=== PATIENT | male | born 1990 | race Caucasian/White ===

== ENCOUNTER 2017-12-10 18:27 | Inpatient (IN) | payer OTHER ==
[~2017-12-10] VITALS: Ht 180.3 cm; Wt 65.8 kg
[~2017-12-10 18:27] MED LIST: Gabapentin PO; MAGN1TAB4 PO
--- NOTE | 2017-12-10 18:40 | NUR ---
Pre-Admission Note Pt. is 27 y/o male seeking admittance for opiate and benzodiazepine withdrawal. Pt. presents as anxious, restless, with pressured speech and dilated pupils. Pt. states he uses methadone 70mg-80mg daily but has been unable to obtain any since last 12/04/2017. Pt. states that he also Uses 10mg of Xanax daily last used on Friday12/08/2017. Pt. reports using heroin over the weekend to help manage his withdrawal symptoms but states that he no longer uses heroin at all. Pt.'s current vital signs WNL. Educated pt. on admission process, pt. verbalize understanding.
[2017-12-10 19:03] VITALS: BP 108/68
[2017-12-10 19:39] VITALS: BP 101/62
--- NOTE | 2017-12-10 20:00 | NUR ---
Admission The patient is a 27 year old male who presents to [facility] for medically supervised withdrawal from Opiate-Methadone and Benzos- Xanax. Patient was escorted on to the unit at 1900. Skin check rendered with skin noted intact. Patient is ambulatory with steady gait. Patient is noted to be very irritable, anxious, and restless. He is noted with flat, depressed affect. Patient is noted to answer questions with quick one word answers and is often noted with delayed answers. He states Im really sick. I dont feel good. I need medications now. Why do we have to do this now. Explained admission process to patient and he verbalized understanding and was noted to comply. Patient is also noted to answer questions with eyes closed. He is alert and oriented x4, speech is clear, pressured and at times delayed. Patient reports his substance use as: 1. Opiates-Methadone: started 3 months ago, he first started at 40mg and quickly graduated to 80mg Daily PO. His last dose was 12/04/17 1000 taking 80mg. 2. Benzos-Xanax: started approximately 3 months ago taking 10mg PO daily. His last dose was noted 12/08/17 1000 taking 6mg. Patient was first prescribed Xanax at the age of [age] years old. Patients bottle of Xanax was found in his luggage and prescription was filled 11/28/17. He was given 60 tabs and bottle was noted to be empty. Clarified with patient of usage and he states I told you the last time I took a benzo was on Friday (12/08/17). Benzos stay in your system for 2 weeks. Im the professional here. I know what Im talking about. 3. Opiate-Heroin: patient reports of only using heroin 0.2mg x2 days 12/06/17 and 12/07/17 because he was not able to receive another dose of methadone. Patient first started using Heroin approx 10 years ago at the age of 17. 4. Subutex 8mg taken at 7am on the day of admission due to increased signs and symptoms of withdrawal. Patient explains of previously taking Subutex or Suboxone whatever he was able to purchase on the street. When asked if patient is experiencing any signs and symptoms fo withdrawal patient states Yes. Im sick. My body hurts, stomach cramps, fatigue, no appetite, nausea, headaches, chills, sweats, tremors patient is noted with symptoms as described, tremulous, chills, sweats, restless, agitated, anxious, and light sensitivity. Patient denies any seizure history. He also denies any withdrawal induced cardiac complications, or overdoses. When asked if patient has experienced withdrawal induced delirium patient states well this last weekend when I took the heroin I kept hearing my name. He denies any previous visual hallucinations but he explains of experiencing auditory hallucinations. He also explains of experiencing blackouts when using too much Benzos or Opiates. He is unable to recall the last time he experienced a blackout. Patient denies any suicidal ideations or homicidal ideations. He also denies any history of Psych Hospitalizations. He reports no current PCP or Psychiatrist. Patient reports of only being prescribed Xanax 2mg PO PRN for Anxiety. He explains I got these at a clinic when I was in [place]. Patient reports a past medical history of anxiety, depression with no current medication prescribed, and Hep C, which was diagnosed Nov 2015. When asked why patient uses or what resulted in his relapse, He states I have always used. This isnt a relapse. I just maintained this time by using methadone. Where I was I could get Methadone prescribed to me in weekly or monthly doses. When I came out to [place] for work, I was unable to find a location where I get that. So I found what I could which was Heroin. I also just maintained using Xanax until I ran out. I thought I would be ok but I wasnt. I was able to get a hold of Subutex. And that is what I took today and yesterday to no feel so bad. But that wasnt working either. When asked why patient decided to get sober he states I need help. I feel like shit. When asked to explain his triggers patient states I like the high. I crave it. I was using Methadone by itself but then it wasnt giving me the high so I was take benzos just to get the high I was seeking. When asked to explain barriers for staying sober he states I guess you can say myself. I feel like the cravings are so intense that I want to use. Patient is able to state his support system consists of his sober friends and his mom. He is able to explain his consequences from using as feeling like crap when I cant get the drug Im looking for and maybe damaging my relationships, and affecting my health. Patient explains of trying to reach sobriety on several occasions but due to the symptoms of withdrawal becoming overwhelming he resorts to using again. Patient is unable to explain how this admission will be different and he states what I do know is that this detox is different than any of the other times I have detoxed. The methadone is really bad. Patient has struggled with multiple attempts at sobriety with the longest being for 10 months in 2012. Patient reports of multiple treatment admissions including several admissions to [facility] with the last one noted Apr 2016. Vital sings rendered and noted as 97.6, 101/62, 16, 48, 99% 0/10 pain. Heart rate is noted to be 48 with CN made aware. MD made aware. Breathing even and non labored. Patient is noted with wheezing to the right upper lobe. No cough noted. Bowel sounds active in all quadrants. LBM noted 12/10/17. Patient follows a regular diet. No known allergies, Full Code. Height noted to be 511 and weight noted to be 145lbs. Patient reports of smoking approximately 20 cigarettes a day. Educated patient about plan of care including detox, group therapy, individual therapy, discharge planning, and he was able to verbalize understanding. Admission CIWA noted to be 22 and COWS 11. All information relayed to MD with new orders for EKG to be rendered, PRN medications for increased signs and symptoms of withdrawal. Labs ordered. All needs attended to promptly. Will continue plan of care as ordered.
[2017-12-10] MEDS ORDERED: MAGNESIUM HYDROXIDE 30 ML LIQUID UDC PO PRN (20:45)
[2017-12-10] MEDS ORDERED: 6 DAY PHENOBARBITAL TAPER -SERENITY PROTOCOL PO PRN (20:45)
[2017-12-10] MEDS ORDERED: ONDANSETRON ODT 4 MG TAB.RAPDIS SL PRN (20:45)
[2017-12-10] MEDS ORDERED: LOPERAMIDE HCL 2 MG CAPSULE PO PRN ×2 (20:45)
[2017-12-10] MEDS ORDERED: MAG HYDROX/AL HYDROX/SIMETH 30 ML LIQUID UDC PO PRN (20:45)
[2017-12-10] MEDS ORDERED: BUPRENORPHINE HCL 2 MG TAB.SUBL SL PRN (20:45)
[2017-12-10] MEDS ORDERED: ONDANSETRON 4 MG/2 ML VIAL IM PRN (20:45)
[2017-12-10 21:25] LABS: *AMPHETAMINE, URINE NEGATIVE (NEGATIVE); *BARBITURATE, URINE NEGATIVE (NEGATIVE); *CANNABINOID, URINE POSITIVE (NEGATIVE); *COCCAINE, URINE NEGATIVE (NEGATIVE); *OPIATE, URINE POSITIVE (NEGATIVE); *PHENCYCLIDINE SCREEN,URINE NEGATIVE (NEGATIVE)
[2017-12-10 21:39] LABS: BASOPHILS % (AUTO) 0.2 % (0.0-2.0); EOSINOPHILS # (AUTO) 0.1 K/uL (0.0-0.7); EOSINOPHILS % (AUTO) 1.2 % (0.0-7.0); HEMATOCRIT 42.2 % (36.7-47.1); HEMOGLOBIN 14.7 g/dL (12.5-16.3); LYMPHOCYTES % (AUTO) 27.4 % (20.5-51.5); MEAN CORPUSCULAR HEMOGLOBIN 31.9 uug (23.8-33.4); MEAN CORPUSCULAR HGB CONC 35 g/dL (32.5-36.3); MEAN CORPUSCULAR VOLUME 91.5 fL (73.0-96.2); MONOCYTES # (AUTO) 0.9 K/uL (2.0-10.0); MONOCYTES % (AUTO) 8.7 % (0.0-11.0); NEUTROPHILS # (AUTO) 6.8 K/uL (1.8-8.9); NEUTROPHILS % (AUTO) 62.5 % (38.5-71.5); PLATELET COUNT (AUTO) 212 K/uL (152-348); RED BLOOD CELL COUNT(AUTO) 4.62 MIL/uL (4.06-5.63); WHITE BLOOD COUNT (AUTO) 10.8 K/uL (3.6-10.2)
[2017-12-10 21:41] LABS: ETHANOL < 3 MG/DL (0-0)
[2017-12-10 21:59] LABS: ALANINE AMINOTRANSFERASE 56 U/L (16-63); ALKALINE PHOSPHATASE 58 U/L (50-136); ASPARTATE AMINOTRANSFERASE 23 U/L (15-37); BILIRUBIN,TOTAL 0.3 mg/dL (0.2-1.0); CARBON DIOXIDE 26 mmol/L (21-32); CHLORIDE 104 mmol/L (98-107); CREATININE 0.7 mg/dL (0.6-1.3); GLUCOSE 110 mg/dL (74-106); MAGNESIUM 2.1 mg/dL (1.8-2.4); POTASSIUM 3.3 mmol/L (3.5-5.1); TOTAL PROTEIN, SERUM 6.9 g/dL (6.4-8.2); UREA NITROGEN, BLOOD 8 mg/dL (7-18)
[2017-12-10 22:28] LABS: THYROID STIMULATING HORMONE 0.206 mIU/mL (0.358-3.740)
[2017-12-10 22:29] VITALS: BP 113/79
[2017-12-10] MEDS ORDERED: POTASSIUM CHLORIDE 20 MEQ TAB.PRT.SR PO ONE (22:30)
--- NOTE | 2017-12-10 22:30 | NUR ---
EKG EKG rendered and noted as Sinus bradycardia with sinus arrythmia. Relayed to MD orders for Echo and cardiology consult for AM. Ok to administer Ativan as ordered. Will continue to monitor. Addendum: 12/11/17 at 0457 by ANGÉLICA WAITE LVN Correction: Arrhythmia
[2017-12-10] MEDS: LORAZEPAM 1 MG TABLET PO PRN (22:46)
[2017-12-10] MEDS ORDERED: ALPR2TAB7 PO (22:48)
--- NOTE | 2017-12-10 22:50 | NUR ---
PRN Medication Administration Patient is noted with increased anxiety, agitation, tremulous, sweats, chills, light sensitivity, headache, and intermittent stomach cramps. MD made aware of patients heart rate with ok to administer PRN Ativan 2mg. Patients lab values with potassium as 3.3 with new order for one time dose of Potassium 40meq one time dose now. Medications administered. Patient able to tolerate well. Will continue to monitor.
--- NOTE | 2017-12-10 23:40 | NUR ---
PRN Medication Reassessment Patient received PRN Ativan 2mg for increased signs and symptoms of withdrawal. No restlessness or facial grimacing noted. CIWA and COWS not able to be completed as per order. PRN Ativan noted to be effective. Will continue to monitor.
[2017-12-11] VITALS (7 sets, daily range): BP systolic 95–133; BP diastolic 55–86
--- NOTE | 2017-12-11 00:27 | NUR ---
COWS and CIWA Patient is noted in bed with eyes closed. Breathing even and non labored. No facial grimacing noted. No restlessness noted. Vitals rendered. Heart rate remains low at 45. CN made aware. COWS and CIWA unable to be completed as per order. Will continue to monitor.
[2017-12-11] MEDS: LORAZEPAM 1 MG TABLET PO PRN ×2 (03:58→14:33)
--- NOTE | 2017-12-11 04:05 | NUR ---
PRN Medication Administration patient is noted awake and returned from smoking patio with increased tremors, anxiety, agitation, stomach cramps, light sensitivity, and head fullness. CIWA noted to be 21 and COWS 14. PRN Subutex offered to patient but patient refuesd. PRN Ativan 2mg administered. Heart rate noted to be 61. All needs attended to promptly. Will continue to monitor.
--- NOTE | 2017-12-11 04:50 | NUR ---
PRN Mediation Reassessment Patient is noted in bed with eyes closed. Breathing even and non labored. No sign of restlessness or discomfort noted. No facial grimacing noted. PRN Ativan 2mg noted to be effective. Will continue to monitor.
--- NOTE | 2017-12-11 07:04 | NUR ---
End of shift Patient is in bed with eyes closed. Breathing even and non labored. No signs of restlessness or discomfort. Patient is scheduled to start a 6 day Phenobarbital taper and 5 day Subutex taper. Patient received PRN Ativan 2mg x2 for increased signs and symptoms of withdrawal. Patient noted to sleep a total of 6 hours. Last noted CIWA 21 and COWS 14. All needs attended to promptly. Will endorse to continue plan of care as ordered.
--- NOTE | 2017-12-11 07:15 | NUR ---
Start of Shift note Pt. is a 27 y/o male admitted for medically managed withdrawal from Benzodiazepines and opiates. Pt. was placed on a 6 day Phenobarbital and a 5 day Subutex taper to manage withdrawal symptoms. Endorse from previous shift pt. presented with body aches, anxiety, restlessness and tremors. Pt. given PRN ativan to manage withdrawal symptoms. Received pt. in room. Pt. getting ready to out for a smoke. Pt. reports feeling off stating Patience never come off methadone before, I feel bad, I cant describe it I just feel bad. Pt. educated on treatment plan and medication regiment. Pt. encouraged to verbalize concerns and emotions. Safety measures in place. Will continue to monitor pt.s behavior for safety and medication effectiveness.
--- NOTE | 2017-12-11 08:00 | NUR ---
COWS/CIWA Assessment COWS of 15. CIWA of 17. Pt. in room presenting with diaphoresis, agitation, restlessness, body aches, congestion, stomach cramps, anxiety, tremors, mild light sensitivity, piloerection. Will given medications as ordered. Will continue to monitor pt.'s behavior for safety.
[2017-12-11] MEDS: METHOCARBAMOL 750 MG TABLET PO PRN (08:10)
[2017-12-11] MEDS: HYDROXYZINE PAMOATE 25 MG CAPSULE PO PRN (08:10)
[2017-12-11] MEDS: CLONIDINE HCL 0.1 MG TABLET PO PRN (08:10)
[2017-12-11] MEDS: PHENOBARBITAL 60 MG TABLET PO SCH ×4 (08:10→20:22)
[2017-12-11] MEDS: BUPRENORPHINE HCL 2 MG TAB.SUBL SL SCH ×4 (08:11→20:22)
[2017-12-11] MEDS: DICYCLOMINE HCL 20 MG TABLET PO PRN (08:11)
[2017-12-11] MEDS: MULTIVITAMINS,THERAPEUTIC TABLET PO SCH (08:11)
[2017-12-11] MEDS: IBUPROFEN 600 MG TABLET PO PRN (08:11)
--- NOTE | 2017-12-11 08:11 | NUR ---
PRN Medication Pt. in room laying in bed and reports feeling anxious, chills, stomach cramps and body aches. PRN Clonidine, Vistaril, Robaxin, and Motrin given at this time to manage withdrawal symptoms. Will continue to monitor pt. behavior for safety and medication effectiveness.
[2017-12-11] MEDS ORDERED: 5 DAY TAPER BUPRENORPHINE -SERENITY PROTOCOL SL PRN (09:00)
[2017-12-11] MEDS ORDERED: TUBERCULIN,PURIF.PROT.DERIV. 5 TU/0.1 ML TEST ID ONE (09:00)
--- NOTE | 2017-12-11 09:00 | NUR ---
PRN Re-Assessment Pt. in bed and reports a decrease in anxiety and body aches. Medication effective. Will continue to monitor pt.'s behavior for safety.
--- NOTE | 2017-12-11 12:00 | NUR ---
COWS/CIWA Assessment COWS of 16. CIWA of 16. Pt. in room presenting with diaphoresis, agitation, restlessness, body aches, congestion, stomach cramps, anxiety, tremors, mild light sensitivity, piloerection. Pt. compliant with medication regiment and is able to make his needs known. Will continue to monitor pt.'s behavior for safety
--- NOTE | 2017-12-11 12:35 | NUR ---
ENDORSEMENT Pt endorsed to me. All information received.
--- NOTE | 2017-12-11 12:40 | NUR ---
LABS MD aware of lab results: WBC=10.8 tsh=0.206.
--- NOTE | 2017-12-11 14:37 | NUR ---
PRN ATIVAN SUBUTEX ciwa=13 cows=14. Anxious and restless. Very fidgety. Very irritable. Piloerection. Complaints of intermittent chills and sweats, body aches, adn generalized discomfort. Ativan 2mg po prn per MD order given and subutex 4mg po prn per MD order given.
--- NOTE | 2017-12-11 15:37 | NUR ---
PRN ATIVAN SUBUTEX TAPER cows=9 ciwa=8. Still anxious. Decreased irritability. Pt states medication is effective. Bilateral hand tremors noted.
--- NOTE | 2017-12-11 15:50 | NUR ---
Therapist prompted client to attend group therapy sessions.
--- NOTE | 2017-12-11 16:00 | NUR ---
COWS CIWA ASSESSMENT cows=11 ciwa=10. Anxious and restless. Pressured speech. Fidgety. Easily irritable. Pacing. Complaints of generalized discomfort, body aches, and intermittent chills and perspiration. Bilateral hand tremors.
--- NOTE | 2017-12-11 18:10 | NUR ---
END OF SHIFT Pt 27 y/o male admitted for opiate and benzo withdrawal. Pt alert and oriented to name, place, and time. Perrla. Skin warm and moist to touch. Respirations even and unlabored. Appears disheveled and unkempt. Clothes and empty drink bottles scattered throughout the room. Encouraged to maintain hygiene. Anxious and restless. Pressured speech. Fidgety. Irritable. Bilateral hand tremors. Complaints of intermittent perspiration. Mostly isolative with minimal peer interaction. Attended group activity. Was seen by MD. Last cows=11 ciwa= 10@1600. Pt is on a 6 day Phenobarbital taper and is on day 1. Pt also on a 5 day subutex taper and is on day 1. Bed on lowest position with side rails x2 up . Call light within reach.
--- NOTE | 2017-12-11 19:30 | NUR ---
Start of Shift Patient Received. Patient continues on scheduled Phenobarbital and Subutex taper. Echo and cardiology consult with no new orders noted. Patient was given PRN Vistaril, Clonidine, Robaxin, Motrin, Subutex, and Ativan with all medications noted to be effective. Last noted CIWA 10 and COWS 11. Upon rounds patient is noted in bed awake, alert and verbally responsive. Breathing even and non labored. Patient is able to verbalize that taper medication as been noted effective in minimizing signs and symptoms of withdrawal. All needs attended to promptly. Will continue plan of care as ordered.
[2017-12-11] MEDS: diphenhydrAMINE 50 MG CAPSULE PO PRN (20:22)
--- NOTE | 2017-12-11 20:28 | NUR ---
PRN Medication Administration Patient is noted verbalizing inability of falling asleep and staying asleep at night. PRN Benadryl administered. Will continue to monitor.
--- NOTE | 2017-12-11 21:30 | NUR ---
PRN Medication Reassessment Patient is noted in bed with his eyes closed. Breathing even and non labored. No signs of restlessness or discomfort noted. No facial grimacing noted. PRN Benadryl noted to be effective. Will continue to monitor.
--- NOTE | 2017-12-12 00:20 | NUR ---
COWS and CIWA Patient is noted in bed with eyes closed. Breathing even and non labored. No restlessness or discomfort noted. no signs of restlessness or facial grimacing noted. Patient refused vitals. COWS and CIWA not able to be completed. Will continue to monitor.
--- NOTE | 2017-12-12 04:20 | NUR ---
Cows and CIWA Patient is noted in bed with eyes closed. breathing even and non labored. No signs of restlessness or discomfort. COWS and CIWA not able to be completed as per order. Vitals refused. Will continue to monitor.
--- NOTE | 2017-12-12 07:03 | NUR ---
end of Shift Patient is in bed with eyes closed. Breathing even and non labored. Patient continues on scheduled Phenobarbital and Subutex taper. Patient received PRN Benadryl with medication noted to be effective. He was noted to sleep a total of 8 hours. Last noted CIWA 8 and COWS 11. Patient is noted to be isolative to room and only participating in smoke breaks. All needs attended to promptly. Will endorse to continue plan of care as ordered.
--- NOTE | 2017-12-12 07:30 | NUR ---
START OF SHIFT Pt 27 y/o male admitted for opiate and benzo withdrawal. Pt received awake walking around the hallways. Pt alert and oriented to name, place, and time. Perrla. Skin warm and moist to touch. Respirations even and unlabored. Appears disheveled. Clothes scattered throughout the room. Encouraged to maintain hygiene. Anxious and restless. Pacing. Pressured speech. Bilateral hand tremors. It was reported that pt slept for 8 hours last night. Last cows=11 ciwa=8 @ 1999. Pt is on a 6 day phenobarbital taper and is on day 2. Pt also on a 5 day subutex taper and is on day 2. Bed on lowest position with side rails x2 up for safety. Call light within reach.
--- NOTE | 2017-12-12 08:00 | NUR ---
COWS CIWA ASSESSMENT cows=11 ciwa=10. Anxious and restless. Pressured speech. Pacing. Not able to sit still. Easily irritable. Complaints of generalized discomfort. Bilateral hand tremors.
[2017-12-12 08:06] VITALS: BP 115/58
[2017-12-12] MEDS: ACETAMINOPHEN 325 MG TABLET PO PRN (08:08)
[2017-12-12] MEDS: PHENOBARBITAL 60 MG TABLET PO SCH ×3 (08:08→20:40)
[2017-12-12] MEDS: MULTIVITAMINS,THERAPEUTIC TABLET PO SCH (08:08)
[2017-12-12] MEDS: BUPRENORPHINE HCL 2 MG TAB.SUBL SL SCH ×3 (08:08→20:40)
--- NOTE | 2017-12-12 08:10 | NUR ---
PRN TYLENOL Pt states has generalized pain 5/10. Tylenol prn po per MD order given.
--- NOTE | 2017-12-12 09:10 | NUR ---
PRN TYLENOL EVAL States pain is 3/10.
[2017-12-12 12:00] VITALS: BP 118/60
--- NOTE | 2017-12-12 12:00 | NUR ---
COWS CIWA ASSESSMENT cows=11 ciwa=10. Bilateral hand tremors noted. Anxious and restless. Pressured speech. Fidgety. Complaints of stomach cramps. Complaints of generalized body aches and generalized discomfort.
[2017-12-12] MEDS: HYDROXYZINE PAMOATE 25 MG CAPSULE PO PRN (12:16)
[2017-12-12] MEDS: METHOCARBAMOL 750 MG TABLET PO PRN (12:16)
[2017-12-12] MEDS: CLONIDINE HCL 0.1 MG TABLET PO PRN (12:16)
[2017-12-12] MEDS: IBUPROFEN 600 MG TABLET PO PRN (12:17)
[2017-12-12] MEDS: DICYCLOMINE HCL 20 MG TABLET PO PRN (12:17)
--- NOTE | 2017-12-12 12:20 | NUR ---
PRN MOTRIN ROBAXIN VISTARIL BENTYL CATAPRES Pt states very anxious and restless and complaints of intermittent perspiration. Catapres po prn per MD order given. Vistaril po prn per MD order given . Pt with complaints of stomach cramps. Bentyl po prn per MD order given. Complaints of body aches 09/16. Robaxin po prn per MD order given. Complaints of body aches 07/17. Motrin po prn per MD order given .
[2017-12-12 13:07] LABS: HEPATITIS B SURFACE AG Negative (Negative)
--- NOTE | 2017-12-12 13:20 | NUR ---
PRN MOTRIN ROBAXIN VISTARIL BENTYL CATAPRES EVAL Pt states medication effective for anxiety. Pt states stomach cramps is more tolerable at this time. States body aches 4/10. States body pain 2/10.
[2017-12-12 16:00] VITALS: BP 98/64
--- NOTE | 2017-12-12 16:00 | NUR ---
COWS CIWA ASSESSMENT cows=11 ciwa=10. Anxious and restless. Pressured speech. Pacing. Irritable. Bilateral hand tremors noted. Intermittent perspiration. Nausea.
--- NOTE | 2017-12-12 18:38 | NUR ---
END OF SHIFT Pt 27 y/o male admitted for opiate and benzo withdrawal. Pt alert and oriented to name, place, and time. Perrla. Skin warm and moist to touch. Respirations even and unlabored. Appears disheveled and unkempt. Clothes and empty drink bottles scattered throughout the room. Encouraged to maintain hygiene. Anxious and restless. Pressured speech. Pacing. Easily irritable. Bilateral hand tremors. Intermittent perspiration and chills. Body aches. Generalized discomfort. Mostly observed in recreational room throughout the room. Attended group activity. Medication compliant. Pt is on a 6 day Phenobarbital taper and is on day 2. Pt also on a 5 day subutex taper and is on day 2. Last cows=11 ciwa=10 @ 1600. Bed on lowest position with side rails x2 up for safety. Call light within reach.
--- NOTE | 2017-12-12 19:30 | NUR ---
Start of Shift Patient Received. Per endorsement patient continues on modified Phenobarbital and Subutex taper. Patient received PRN Motrin, Robaxin, Clondine, Vistaril, Bentyl, and Tylenol with medications noted to be effective. Last noted COWS 11 and CIWA 10. Upon rounds patient is noted in bed awake alert and verbally responsive. Breathing even and non labored. No signs of restlessness or facial grimacing noted. Patient denies any current signs or symptoms of withdrawal. Reviewed 2100 medications with patient and he was able to verbalize understanding. All needs attended to promptly. Will continue plan of care as ordered.
[2017-12-12 20:21] VITALS: BP 106/65
--- NOTE | 2017-12-12 20:30 | NUR ---
COWS and CIWA Assessment Patient continues to be monitored for increased signs and symptoms of withdrawal. He is noted with increased body aches, restlessness, nasal stuffiness, tremulous, increased anxiety, agitation, piloerect skin, and increased sweats. CIWA noted to be 9 and COWS 12. Will continue to monitor.
[2017-12-12] MEDS: diphenhydrAMINE 50 MG CAPSULE PO PRN (20:40)
--- NOTE | 2017-12-12 20:42 | NUR ---
PRN Medication Administration Patient is noted verbalizing inability of falling asleep. PRN Benadryl administered with routine medications. Will continue to monitor.
--- NOTE | 2017-12-12 21:40 | NUR ---
PRN Medication Reassessment Patient is noted in bed with eyes closed. Breathing even and non labored. No signs of restlessness or facial grimacing noted. PRN Benadryl noted to be effective. Will continue to monitor.
--- NOTE | 2017-12-13 00:21 | NUR ---
COWS and CIWA Assessment patient is noted in bed with eyes closed. Breathing even and non labored. No signs of restlessness or facial grimacing noted. CIWA and COWS not able to be completed as per order. Will continue to monitor.
--- NOTE | 2017-12-13 07:03 | NUR ---
End of Shift Patient is in bed with eyes closed. Breathing even and non labored. No signs of restlessness or discomfort noted. Patient continues on modified Phenobarbital and Subutex taper. Patient received PRN Benadryl with medication noted to be effective. He was noted to sleep a total of 9 hours of sleep. Last noted COWS 12 and CIWA 9. All needs attended to promptly. Will endorse to continue plan of care as ordered.
--- NOTE | 2017-12-13 07:30 | NUR ---
Start of Shift Note Pt. is a 27 y/ male admitted for the medically managed withdrawal from benzodiazepines and opiates. Pt. was placed on a 6 day Phenobarbital taper and a 5 day Subutex taper to manage withdrawal symptoms. Endorse from previous shift. Pt. presented with anxiety, restlessness and diaphoresis. Received pt. in [address] outside room. Pt. stated I feel better than when I first came in. Educated pt. on treatment plan and medication regiment. Safety measures in place. Will continue to monitor pt.s behavior for safety.
[2017-12-13 08:00] VITALS: BP 114/68
--- NOTE | 2017-12-13 08:00 | NUR ---
COWS/CIWA Assessment COWS of 12 and CIWA of 9. Pt. presents with anxiety, tremors, body aches, flushed facial skin, and agitation. Will give medications as ordered. Will continue to monitor pt.'s behavior for safety.
[2017-12-13] MEDS: MULTIVITAMINS,THERAPEUTIC TABLET PO SCH (08:14)
[2017-12-13] MEDS: PHENOBARBITAL 60 MG TABLET PO SCH ×4 (08:14→20:06)
[2017-12-13] MEDS ORDERED: BUPRENORPHINE HCL 2 MG TAB.SUBL SL SCH (09:00)
[2017-12-13 12:00] VITALS: BP 111/70
--- NOTE | 2017-12-13 13:54 | NUR ---
COWS/CIWA Assessment COWS of 11 and CIWA of 10. Pt. presents with anxiety, tremors, body aches, flushed facial skin, and agitation. Pt. compliant with medication regiment and treatment plan. Will continue to monitor pt.'s behavior for safety.
[2017-12-13] MEDS: BUPRENORPHINE HCL 2 MG TAB.SUBL SL SCH ×2 (14:00→20:07)
--- NOTE | 2017-12-13 16:00 | NUR ---
COWS/CIWA Assessment COWS of 8 and CIWA of 9. Pt. presents with anxiety, tremors, body aches, flushed facial skin, and agitation. Pt. compliant with medication regiment and treatment plan. Will continue to monitor pt.'s behavior for safety.
[2017-12-13 16:58] VITALS: BP 104/56
--- NOTE | 2017-12-13 19:29 | NUR ---
End of Shift Note Pt. is a 27 y/ male admitted for the medically managed withdrawal from benzodiazepines and opiates. Pt. was placed on a 6 day Phenobarbital taper and a 5 day Subutex taper to manage withdrawal symptoms. Throughout shift. Pt. presented with anxiety, restlessness and diaphoresis. Pt. medication complaint throughout shift. Safety measures in place. Will endorse pt.s care to oncoming shift.
[2017-12-13 20:00] VITALS: BP 112/68
--- NOTE | 2017-12-13 20:00 | NUR ---
Start of Shift Patient noted to be anxious, walks with a fast pace along the hallway and with flat affect. Patient also observed to be fidgety and tries to avoid conversation. Patient is isolative and melancholic. Patient verbalized that he feels "like there's something crawling on my skin." To continue with 6-day Phenobarbital taper and 5-day Subutex taper. Fall, universal, seizure and safety prec in place. Call light within reach. Latest COWS=11, CIWA=10. Will continue to monitor.
[2017-12-13] MEDS: diphenhydrAMINE 50 MG CAPSULE PO PRN (20:06)
[2017-12-14] VITALS: BP 108/65
--- NOTE | 2017-12-14 | NUR ---
COWS=8, CIWA=8 Patient with tremors and c/o intermittent anxiety, muscle pain and continues to be melancholic and isolative.
[2017-12-14 04:00] VITALS: BP 117/63
--- NOTE | 2017-12-14 04:00 | NUR ---
COWS=9, CIWA=8 Patient with anxiety and continues to be melancholic and isolative. Patient with tremors and is disheveled.
--- NOTE | 2017-12-14 07:26 | NUR ---
End of Shift Patient continues to have a flat affect and isolative. Patient verbalized that every time he wakes up in the middle of his sleep, he feels anxious and experiences racing thoughts. Encouraged patient to take a shower today as he is noted to have a strong body odor. Fall, universal, seizure and safety prec in place. Call light within reach. Latest COWS=9, CIWA=8, slept for 8 hours. Endorsed to AM shift nurse for continuity of care.
--- NOTE | 2017-12-14 07:45 | NUR ---
START OF SHIFT Endorse rcvd from ongoing nurse, client is lying in bed, sounds asleep, easy to arouse, RR 16 even, non-labored. Client had an uneventful night. Client slept 8 hrs. Client is on fourth of 6 day Phenobarbital / 5 day Subutex taper. Last CIWA / 9 @ 0400. Call light within reach. Will continue to monitor.
[2017-12-14 08:09] VITALS: BP 115/74
[2017-12-14] MEDS: MULTIVITAMINS,THERAPEUTIC TABLET PO SCH (08:14)
[2017-12-14] MEDS: ACETAMINOPHEN 325 MG TABLET PO PRN (08:14)
[2017-12-14] MEDS: METHOCARBAMOL 750 MG TABLET PO PRN (08:14)
[2017-12-14] MEDS: BUPRENORPHINE HCL 2 MG TAB.SUBL SL SCH ×3 (08:14→20:23)
[2017-12-14] MEDS: PHENOBARBITAL 60 MG TABLET PO SCH ×3 (08:14→20:23)
--- NOTE | 2017-12-14 08:14 | NUR ---
CIWA 14 / COWS 13 & PRN Robaxin 750mg PO for myalgia lower back 08/17 Client is in bed, he presents with depressed, anxious mood, flat affect, enlarged pupils, dark circles under eyes, temporal waste, clammy skin, and tremors felt. Client reports agitation, anhedonia, anxiety, chills, depression, difficulty concentrating, poor appetite, shaking , sweats, muscle pain on lower back, restless legs, and fatigue. Scheduled Phenobarbital 30mg PO, Subutex 4mg SL and above PRN med administered. Call light within reach.
--- NOTE | 2017-12-14 09:14 | NUR ---
Reassess PRN Robaxin 750mg, client reports relief from myalgia 0/10
[2017-12-14 12:42] VITALS: BP 109/67
--- NOTE | 2017-12-14 12:44 | NUR ---
CIWA 14 / COWS 13 Client presents with anxious mood, flat affect, flushed facial skin, clammy skin, enlarged pupils, tremors, and difficulty concentrating, Client reports chills, sad, difficulty thinking clearly, generalized body aches, restless legs, congested nose, sweating, yawning, and fatigue. Encourage client to increase PO fluid intake as tolerated to facilitate detox. Non-pharmacological interventions rendered, will continue to monitor. call light within reach.
[2017-12-14 16:55] VITALS: BP 103/61
--- NOTE | 2017-12-14 17:19 | NUR ---
CIWA 13 / COWS 13 Client continues to present with anxious mood, flat affect, flushed facial skin, clammy skin, enlarged pupils, tremors, and difficulty concentrating, Client reports chills, depression, minor body aches, restless legs, runny nose, sweating, yawning, and fatigue. Encourage client to increase PO fluid intake as tolerated to facilitate detox. Non-pharmacological interventions rendered, will continue to monitor. call light within reach.
--- NOTE | 2017-12-14 19:29 | NUR ---
END OF SHIFT Client continues to report anxiety, irritability, tremors, nausea, poor appetite, fatigue, avoidant gaze, flushed face, clammy skin, and difficulty concentrating. Last CIWA 13 / COWS 13 @ 1700. PRN medications administered and noted per protocol. Client is compliant with group therapy. PO fluid intake 1210mL, void x 3. Consumes 50-75% of meals. Seizure precautions in place. call light within reach.
--- NOTE | 2017-12-14 19:30 | NUR ---
Start of shift Patient is a 27 year old male, admitted on 12/10/2017. Patient is here at [facility] for medically supervised Opiate and Benzos withdrawal. Patient is on a 6 day Phenobarbital taper and a 5 day Subutex taper. Patient is on Fall and Seizure precautions. Per endorsement patient received PRN Robaxin on day shift. Patients last CIWA was 13 and COWS was 13. Patient is schedule for a CMP on 12/15/2017 at 0600. Upon rounds patient was noted in room watching tv, reviewed 2100 medications with patient and he verbalized understanding. Patient was blunt and vague when answering question with poor eye contact. Respirations are even and unlabored. Safety measures in place, bed lock in lowest position, side rails up x2, and call light within reach. Will continue to monitor.
[2017-12-14 20:00] VITALS: BP 100/56
--- NOTE | 2017-12-14 20:00 | NUR ---
CIWA and COWS Assessment Patient is presenting with s/s of withdrawal as follow: stuffy nose, stomach cramps, mild tremors, anxiety and agitation. Patients CIWA is 11 and COWS 8. Respirations are even and unlabored. Safety measures in place, will continue to monitor.
[2017-12-14] MEDS: diphenhydrAMINE 50 MG CAPSULE PO PRN (20:23)
--- NOTE | 2017-12-14 20:23 | NUR ---
PRN Benadryl 50 mg Patient is reporting having difficulty falling asleep. Administered PRN Benadryl and patient tolerated well. Respirations are even and unlabored. Safety measures in place and will continue to monitor.
--- NOTE | 2017-12-14 21:23 | NUR ---
PRN Benadryl 50mg Reassessment Patient is noted in bed watching tv, yawning and is ready to fall asleep. Medication noted to be effective. Patient denies any adverse reactions, respirations are even and unlabored. Safety measures in place, will continue to monitor.
[2017-12-15] VITALS: BP 98/64
--- NOTE | 2017-12-15 | NUR ---
CIWA and COWS Deferred Patient is noted resting in bed with eyes closed, respirations are even and unlabored. Per protocol patient is to be assessed while awake for CIWA and COWS. Safety measures in place will continue to monitor.
[2017-12-15 04:00] VITALS: BP 101/68
--- NOTE | 2017-12-15 07:06 | NUR ---
End of shift Patient is a 27 year old male, admitted on 12/10/2017. Patient is here at [facility] for medically supervised Opiate and Benzos withdrawal. Patient is on a 6 day Phenobarbital taper and a 5 day Subutex taper. Patient is on Fall and Seizure precautions. Patient received PRN Benadryl during this shift for difficulty falling asleep. Patients last CIWA was 11 and COWS was 8. Patient slept for 9 hours and had a total intake of 355 ml. Patient voided x1 and had no bowel movements. Patient was compliant with therapeutic plan of care. Respirations are even and unlabored. Safety measures in place, bed lock in lowest position, side rails up x2, and call light within reach. Will endorse to day shift.
--- NOTE | 2017-12-15 07:45 | NUR ---
START OF SHIFT Pt is a 27 yr old male, AA&x4. Pt was admitted on 12/10/17 for Benzo/Opiate withdrawal and is on 6 day Phenobarbital and 5 day Subutex taper as ordered. Received report from cage shift manager nurse. Pt received Benadryl PRN during the night. Medication was effective and slept for 9 hrs. Last COWS score was 8 and CIWA score was 11. Pt this morning was noted with anxiety and agitation due to lab draw. Pt refused multiple times for blood draw this morning stating, "They already mulugeta blood in the beginning, I don't need it to be done again!" Pt then was avoidant and mulugeta the blankets over his head. Will f/u with . Safety precautions observed. Call light is within reach. Will continue to monitor.
[2017-12-15 08:00] VITALS: BP 114/70
[2017-12-15] MEDS: MULTIVITAMINS,THERAPEUTIC TABLET PO SCH (08:50)
[2017-12-15] MEDS: PHENOBARBITAL 60 MG TABLET PO SCH ×2 (08:51→20:20)
[2017-12-15] MEDS ORDERED: BUPRENORPHINE HCL 2 MG TAB.SUBL SL SCH (09:00)
--- NOTE | 2017-12-15 09:00 | NUR ---
CIWA AND COWS ASSESSMENT Pt is noted with flat affect and blunt. Pt is also noted with avoidant eye contact and is guarded during assessment. Pt is c/o anxiety, agitation, fatigue, restlessness, loss of appetite and sweats. Pt was noted to go down multiple times smoking in the smoking patio. COWS score was 6 and CIWA score was 9. Pt was encouraged to attend group therapy. Will continue to monitor.
--- NOTE | 2017-12-15 12:00 | NUR ---
COWS AND CIWA ASSESSMENT Pt remains noted with flat affect, avoidant in eye contact and is guarded. Pt is c/o anxiety, agitation, fatigue, restlessness and chills. Pt has been observed to go down multiples times to the smoking patio to smoke. COWS score was 5 and CIWA score was 7. Pt was encouraged to attend group therapy. Will continue to monitor.
[2017-12-15 12:06] VITALS: BP 103/57
[2017-12-15 15:43] LABS: BILIRUBIN,TOTAL 0.3 mg/dL (0.2-1.0); CREATININE 0.9 mg/dL (0.6-1.3); POTASSIUM 4.2 mmol/L (3.5-5.1); TOTAL PROTEIN, SERUM 8.3 g/dL (6.4-8.2)
[2017-12-15 15:47] LABS: BASOPHILS # (AUTO) 0.1 K/uL (0.0-8.0); BASOPHILS % (AUTO) 0.8 % (0.0-2.0); EOSINOPHILS # (AUTO) 0.1 K/uL (0.0-0.7); EOSINOPHILS % (AUTO) 1.4 % (0.0-7.0); HEMATOCRIT 50.9 % (36.7-47.1); HEMOGLOBIN 17.8 g/dL (12.5-16.3); LYMPHOCYTES # (AUTO) 2.3 K/uL (20.0-40.0); LYMPHOCYTES % (AUTO) 27.2 % (20.5-51.5); MEAN CORPUSCULAR HEMOGLOBIN 32.2 uug (23.8-33.4); MEAN CORPUSCULAR HGB CONC 35 g/dL (32.5-36.3); MEAN CORPUSCULAR VOLUME 91.9 fL (73.0-96.2); MONOCYTES # (AUTO) 0.7 K/uL (2.0-10.0); MONOCYTES % (AUTO) 8.7 % (0.0-11.0); NEUTROPHILS # (AUTO) 5.2 K/uL (1.8-8.9); NEUTROPHILS % (AUTO) 61.9 % (38.5-71.5); PLATELET COUNT (AUTO) 196 K/uL (152-348); RED BLOOD CELL COUNT(AUTO) 5.54 MIL/uL (4.06-5.63); WHITE BLOOD COUNT (AUTO) 8.4 K/uL (3.6-10.2)
[2017-12-15 15:48] LABS: THYROID STIMULATING HORMONE 0.501 mIU/mL (0.358-3.740)
[2017-12-15 16:00] VITALS: BP 98/65
--- NOTE | 2017-12-15 19:00 | NUR ---
END OF SHIFT Pt is a 27 yr old male, AA&Ox4. pt has been cooperative with medication regimen and plan of care. Pt was encouraged to attend group therapy and agreed to attend. Pt has been noted with flat affect, avoidant in eye contact, restlessness and was observed constantly smoking throughout the day. Pt was c/o anxiety and agitation. No PRN's were given during the day. Last COWS score was 5 and CIWA score was 6. Pt was encouraged increase fluid intake for hydration. Safety precautions observed. Endorsed to program instructor nurse to continue with care.
[2017-12-15 20:00] VITALS: BP 104/58
--- NOTE | 2017-12-15 20:00 | NUR ---
Start of Shift Patient presents with flat affect and in depressed mood. Patient is isolative and avoids conversation. When asked how he is doing, patient only said "good while having no eye contact. Patient verbalized feeling anxious during the day, thus the increased frequency of smoking breaks. Patient also verbalized that he is trying to "go to bed" soon but cannot sleep. PRN medication will be given. Fall, universal, seizure and safety prec in place. Call light within reach. Latest COWS=5, CIWA=6. Will continue to monitor.
[2017-12-15] MEDS: diphenhydrAMINE 50 MG CAPSULE PO PRN (20:20)
--- NOTE | 2017-12-15 20:21 | NUR ---
PRN Benadryl Patient c/o inability to sleep. Administered Benadryl 50 mg PO PRN. Will reassess.
--- NOTE | 2017-12-15 21:25 | NUR ---
Benadryl reassess Patient lying on bed, watching TV. Patient verbalized feeling sleepy.
[2017-12-16] VITALS: BP 100/57
--- NOTE | 2017-12-16 | NUR ---
COWS=5, CIWA=5 Patient presents with anxiety and is isolative and melancholic.
[2017-12-16 04:00] VITALS: BP 97/53
--- NOTE | 2017-12-16 04:00 | NUR ---
COWS=5, CIWA=5 Patient continues to have flat affect and does not have eye contact. Patient is avoidant with conversation, is melancholic and isolative.
--- NOTE | 2017-12-16 07:13 | NUR ---
End of Shift Patient continues to be depressed and with flat affect. Patient still avoids conversation. He is inclined to talk when he asks for PRN medication. Patient has verbalized that he is looking forward to going into the next step of recovery. Fall, universal, seizure and safety prec in place. Call light within reach. Latest COWS=5, CIWA=5 and slept for 8 hours. Endorsed to AM shift nurse for continuity of care.
--- NOTE | 2017-12-16 07:40 | NUR ---
START OF SHIFT Pt is a 27 yr old male, AA&Ox4. Pt was admitted on 12/10/17 for Benzo/Opiate withdrawal and is on 6 day Phenobarbital and 5 day Subutex taper as ordered. Received report from manager night nurse. Pt received Benadryl PRN during the night for slept and slept for 8 hrs. Last COWS score was 5 and CIWA score was 5. Pt is c/o anxiety and was requesting to smoke. Skin is intact, warm and moist to touch. Pt is noted with flat affect and is avoidant in eye contact. Safety precautions observed. Call light is within reach. Will continue to monitor.
[2017-12-16 08:00] VITALS: BP 115/62
--- NOTE | 2017-12-16 08:00 | NUR ---
COWS AND CIWA ASSESSMENT Pt was observed wtih increase anxiety m/b difficulty staying still and was observed constant going down to smoke. Pt was observed guarded and would give one word answer during assessment. Pt is noted with flat affect and sweats. COWS score was 4 CIWA score was 6. Pt was encouraged to attend group therapy. Will continue to monitor.
[2017-12-16] MEDS ORDERED: PHENOBARBITAL 60 MG TABLET PO SCH (09:00)
[2017-12-16] MEDS: MULTIVITAMINS,THERAPEUTIC TABLET PO SCH (09:19)
[2017-12-16 12:00] VITALS: BP 107/68
--- NOTE | 2017-12-16 12:00 | NUR ---
COWS AND CIWA ASSESSMENT Pt continues to be observed with increase anxiety m/b constant smoking. Pt is noted with falt affect. Pt is c/o anxiety, agitation, restlessness, sweats and chills. COWS score was 4 CIWA score was 5. Pt was encouraged to attend group therapy. Will continue to monitor. Addendum: 12/16/17 at 1537 by NAKIA MCFARLAND LVN error in documentation misspelled word Pt is noted with flat affect
--- NOTE | 2017-12-16 15:22 | NUR ---
Therapist prompted client to attend all group therapy sessions.
[2017-12-16 16:00] VITALS: BP 107/64
--- NOTE | 2017-12-16 19:07 | NUR ---
END OF SHIFT Pt is a 27 yr old male, AA&Ox4. Pt was admitted on 12/10/17 for Opiate/Benzo withdrawal and completed a 6 day Phenobarbital taper and 5 day Subutex taper. Pt has been cooperative with medication regimen and plan of care. Pt was observed attending group therapy. Pt has been noted with flat affect, avoidant in eye contact, restlessness and was observed constantly smoking throughout the day. Pt was c/o anxiety and agitation. No PRN's were given during the day. Last COWS score was 4 and CIWA score was 4. Pt is to be discharged tomorrow to [facility]. Pt was encouraged increase fluid intake for hydration. Safety precautions observed. Endorsed to overnight caregiver nurse to continue with care.
[2017-12-16 20:00] VITALS: BP 104/58
--- NOTE | 2017-12-16 20:00 | NUR ---
Start of Shift Patient noted to be melancholic and in depressed mood. Patient keeps to himself and avoids conversation. Patient with no pain nor facial grimacing noted. Patient verbalized having intermittent anxiety, refused PRN meds at this time. Patient verbalized, "I've been doing better everyday." Fall, universal, seizure and safety prec in place. Call light within reach. Latest COWS=4, CIWA=4. Will continue to monitor.
[2017-12-17] VITALS: BP 99/63
--- NOTE | 2017-12-17 | NUR ---
COWS=4, CIWA=4 Patient noted with intermittent anxiety and mild nausea. Patient is isolative and melancholic.
[2017-12-17 04:00] VITALS: BP 102/58
--- NOTE | 2017-12-17 04:00 | NUR ---
COWS=4, CIWA=4 Patient with intermittent anxiety and continues to have a depressed mood. Patient has no eye contact and avoids conversation.
--- NOTE | 2017-12-17 07:03 | NUR ---
End of Shift Patient verbalized that he is ready for discharge today to [facility]. Patient continues to be melancholic and isolative. Patient with no pain nor facial grimacing noted. Patient verbalized that he has intermittent anxiety and he also stated that he will try to practice meditation to ease his anxiety. Fall, universal, seizure and safety prec in place. Call light within reach. Latest COWS=4, CIWA=4, slept for 7 hours. Endorsed to AM shift nurse for continuity of care.
--- NOTE | 2017-12-17 07:48 | NUR ---
Start Of Shift / COWS 4 CIWA 4 Received 27 y/o M admitted on 12/10/17 for medically supervised methadone, xanax, and heroin withdrawal. Pt has completed a 6 day Phenobarbital and 5 day subutex taper and tolerated well. Pt is medically cleared to be discharged today. Pt has a flat affect, poor eye contact, depressive mood and is withdrawn. Pt reports having anxiety and restlessness. Encouraged pt to verbalize feelings about situation. Last COWS 4 and CIWA 4 ; slept 7 hrs. Side rails upx2, bed in lowest position. Call light is within reach. Will continue to monitor.
[2017-12-17 08:04] VITALS: BP 111/66
[2017-12-17] MEDS: MULTIVITAMINS,THERAPEUTIC TABLET PO SCH (09:10)
--- NOTE | 2017-12-17 09:35 | NUR ---
Discharge Note Pt is a/ox4, respirations even and unlabored, and is in stable condition, vs wnl. Pt has been given d/c instructions and pt verbalized understanding. Last COWS 4 an CIWA 4. Pt has left the building with all belongings and discharge paperwork at 12/17/17 @4541. Pt has been picked up by [employer] and has been taken to [facility].
== END 2017-12-17 09:35 | disposition other institution (70) | DRG 895 ==
LOC: SRC 18:27
PROVIDERS: ADMIT Family Medicine Addiction Medicine; ATTEND Family Medicine Addiction Medicine
PROC: HZ2ZZZZ Detoxification Services for Substance Abuse Treatment (ICD-10-PCS; principal; 2017-12-10)
PROC: HZ31ZZZ Individual Counseling for Substance Abuse Treatment, Behavioral (ICD-10-PCS; 2017-12-11)
PROC: HZ41ZZZ Group Counseling for Substance Abuse Treatment, Behavioral (ICD-10-PCS; 2017-12-13)
DX: F11.23 Opioid dependence with withdrawal (principal); F17.210 Nicotine dependence, cigarettes, uncomplicated; F13.230 Sedative, hypnotic or anxiolytic dependence with withdrawal, uncomplicated; F41.1 Generalized anxiety disorder; F32.9 Major depressive disorder, single episode, unspecified; B19.20 Unspecified viral hepatitis C without hepatic coma
CPT/HCPCS: 36415; 70030-TC; 80307; 80346; 80349; 80361; 83735; 84443; 85025; 86592; 86705; 86803; 87340; 87806; 93005; 93307; G0480; J8499; Q0163